=== PATIENT | female | born 1945 | race Two or more races ===

== ENCOUNTER 2020-07-20 06:50 | Day surgery (SDC) | payer OTHER ==
[~2020-07-20] VITALS: Ht 154.9 cm; Wt 32.7 kg
[~2020-07-20 06:50] MED LIST: ARICEPT5 MG PO; LEVOXYL137 MCG PO; PEPCID AC20 MG PO; SYNTHROID137 MCG PO; TRAZODONE HCL50 MG PO
== END 2020-07-20 16:05 | disposition home or self-care (01) ==
LOC: CIR.AMB 06:50
PROVIDERS: ATTEND Colon & Rectal Surgery
DX: C20 Malignant neoplasm of rectum (principal); D12.8 Benign neoplasm of rectum; Z20.828 Contact with and (suspected) exposure to other viral communicable diseases

== ENCOUNTER 2025-08-02 11:45 | Inpatient (IN) | payer OTHER ==
[~2025-08-02] VITALS: Ht 61 cm; Wt 38.1 kg
[2025-08-10] MEDS ORDERED: METRONIDAZOLE/SODIUM CHLORIDE 500 MG/100 ML PIGGYBACK IV ONE (13:14)
[2025-08-10] MEDS ORDERED: CEFTRIAXONE SODIUM 2,000 MG VIAL ONE (13:14)
[2025-08-10] MEDS ORDERED: LIDOCAINE HCL 1%/EPINEPHRINE 20ML VIAL IJ ONE (15:54)
[2025-08-10] MEDS ORDERED: BUPIVACAINE HCL/MPF 0.5% 30ML VIAL ONE (15:54)
[2025-08-10] MEDS ORDERED: SUGAMMADEX SODIUM 200 MG/2 ML VIAL IV ONE (17:34)
[2025-08-10] MEDS ORDERED: DEXTROSE 50 % IN WATER 0.5 G/ML DISP.SYRIN IV PRN (18:15)
[2025-08-10] MEDS ORDERED: OxyCODONE HCL 5 MG TABLET (ROXICODONE) PO PRN (18:15)
[2025-08-10] MEDS ORDERED: MORPHINE SULFATE 4 MG/ML CARTRIDGE IV PRN (18:15)
[2025-08-10] MEDS ORDERED: RINGERS SOLUTION,LACTATED 1,000 ML IV SCH (18:15)
[2025-08-10] MEDS ORDERED: ONDANSETRON HCL 2 MG/ML VIAL IV PRN (18:15)
[2025-08-10 20:00] VITALS: BP 104/58; O2SAT 97
[2025-08-10 20:00] LABS: BUN CREA RATIO 40.0 (7.0-25.0); CREATININE SERUM 0.52 mg/dL (0.55-1.02); GFR 114.04; GLUCOSE FASTING 79.0 mg/dL (65-100); OSMOLALITY SERUM 283.0 MOSM/KG (275-295)
[2025-08-10] MEDS ORDERED: ACETAMINOPHEN 500 MG GEL..CAP PO SCH (20:00)
[2025-08-10] MEDS ORDERED: FAMOTIDINE/PF 20 MG/2 ML VIAL IV PUSH SCH (21:00)
[2025-08-10] MEDS ORDERED: CELECOXIB 200 MG CAPSULE PO SCH (21:00)
[2025-08-10] MEDS ORDERED: GABAPENTIN 300 MG CAPSULE PO SCH (21:00)
[2025-08-10 21:17] LABS: BASO % 0.4 % (0.1-1.2); EOS # 0.04 (0.04-0.54); EOS % 0.5 % (0.7-7.0); LYMPH # 1.49 (1.18-3.74); LYMPH % 18.6 % (19.3-53.1); MEAN PLATELET VOLUME 11.60 fl (9.4-12.4); MONO # 0.70 (0.24-0.82); MONO % 8.7 % (4.7-12.5); NEUT # 5.73 (1.56-6.13); NEUT % 71.6 % (34.0-71.1); RED CELL DISTRIBUTION WIDTH 11.9 % (11.6-14.4)
[2025-08-11 00:52] VITALS: BP 88/57; O2SAT 95
[2025-08-11 01:35] VITALS: BP 93/51
[2025-08-11] MEDS ORDERED: PATIENTS OWN MEDICATION (MEDICAMENTO EN PISO) PO SCH (06:00)
[2025-08-11 06:18] LABS: BASO % 0.3 % (0.1-1.2); EOS # 0.02 (0.04-0.54); EOS % 0.2 % (0.7-7.0); LYMPH # 1.15 (1.18-3.74); LYMPH % 12.4 % (19.3-53.1); MEAN PLATELET VOLUME 12.10 fl (9.4-12.4); MONO # 0.70 (0.24-0.82); MONO % 7.6 % (4.7-12.5); NEUT # 7.32 (1.56-6.13); NEUT % 79.3 % (34.0-71.1); RED CELL DISTRIBUTION WIDTH 12.0 % (11.6-14.4)
[2025-08-11 07:00] LABS: BUN CREA RATIO 35.0 (7.0-25.0); CREATININE SERUM 0.51 mg/dL (0.55-1.02); GFR 116.63; GLUCOSE FASTING 119.0 mg/dL (65-100); OSMOLALITY SERUM 282.0 MOSM/KG (275-295)
[2025-08-11 08:17] VITALS: BP 103/58; O2SAT 97
[2025-08-11] MEDS ORDERED: HYOSCYAMINE SULFATE 0.125 MG TAB.SUBL SL SCH (09:00)
[2025-08-11] MEDS ORDERED: LACTULOSE 20 G/30 ML BLIST.PACK PO SCH (09:00)
[2025-08-11] MEDS ORDERED: CEFTRIAXONE SODIUM 2,000 MG VIAL ONE (14:50)
[2025-08-11] MEDS ORDERED: METRONIDAZOLE/SODIUM CHLORIDE 500 MG/100 ML PIGGYBACK IV ONE (14:51)
[2025-08-11] MEDS ORDERED: ENOXAPARIN SODIUM 40 MG/0.4 ML SYRINGE SUBCUTANEO SCH (17:00)
[2025-08-11] MEDS ORDERED: ONDANSETRON HCL 2 MG/ML VIAL IV PRN (17:15)
[2025-08-11] MEDS ORDERED: MORPHINE SULFATE 4 MG/ML CARTRIDGE IV PRN (17:15)
[2025-08-11] MEDS ORDERED: OxyCODONE HCL 5 MG TABLET (ROXICODONE) PO PRN (17:15)
[2025-08-11] MEDS ORDERED: RINGERS SOLUTION,LACTATED 1,000 ML IV SCH (17:15)
[2025-08-11] MEDS ORDERED: ACETAMINOPHEN 500 MG GEL..CAP PO SCH (20:00)
[2025-08-11 20:40] LABS: BASO % 0.3 % (0.1-1.2); EOS # 0.03 (0.04-0.54); EOS % 0.2 % (0.7-7.0); LYMPH # 1.51 (1.18-3.74); LYMPH % 11.2 % (19.3-53.1); MEAN PLATELET VOLUME 11.50 fl (9.4-12.4); MONO # 0.92 (0.24-0.82); MONO % 6.8 % (4.7-12.5); NEUT # 10.91 (1.56-6.13); NEUT % 81.1 % (34.0-71.1); RED CELL DISTRIBUTION WIDTH 12.0 % (11.6-14.4)
[2025-08-11 20:53] VITALS: BP 114/55; O2SAT 95
[2025-08-11] MEDS ORDERED: FAMOTIDINE/PF 20 MG/2 ML VIAL IV PUSH SCH (21:00)
[2025-08-12 00:15] VITALS: BP 109/53; O2SAT 96
[2025-08-12 00:48] VITALS: BP 114/57
[2025-08-12] MEDS ORDERED: GABAPENTIN 300 MG CAPSULE PO SCH (01:00)
[2025-08-12 05:20] VITALS: BP 108/55
[2025-08-12 06:31] LABS: BASO % 0.2 % (0.1-1.2); EOS # 0.01 (0.04-0.54); EOS % 0.1 % (0.7-7.0); LYMPH # 0.75 (1.18-3.74); LYMPH % 6.8 % (19.3-53.1); MEAN PLATELET VOLUME 12.20 fl (9.4-12.4); MONO # 0.62 (0.24-0.82); MONO % 5.6 % (4.7-12.5); NEUT # 9.55 (1.56-6.13); NEUT % 87.0 % (34.0-71.1); RED CELL DISTRIBUTION WIDTH 11.8 % (11.6-14.4)
[2025-08-12 07:18] LABS: BUN CREA RATIO 17.0 (7.0-25.0); CREATININE SERUM 0.35 mg/dL (0.55-1.02); GFR 180.09; GLUCOSE FASTING 85.0 mg/dL (65-100); OSMOLALITY SERUM 273.0 MOSM/KG (275-295)
[2025-08-12] MEDS ORDERED: LACTULOSE 20 G/30 ML BLIST.PACK PO SCH (09:00)
[2025-08-12] MEDS ORDERED: ENOXAPARIN SODIUM 40 MG/0.4 ML SYRINGE SUBCUTANEO SCH ×2 (09:00→17:00)
[2025-08-12] MEDS ORDERED: HYOSCYAMINE SULFATE 0.125 MG TAB.SUBL SL SCH (09:00)
[2025-08-12] MEDS ORDERED: MAGNESIUM SULFATE IN WATER 50 ML IV NR (10:00)
[2025-08-12 11:08] LABS: URINE APPEARANCE Clear; URINE BILIRRUBIN Negative (NEGATIVE); URINE BLOOD Moderate; URINE COLOR Yellow; URINE GLUCOSE Negative (NEGATIVE); URINE LEUKOCYTE Trace; URINE NITRATE Negative; URINE PROTEIN 30 (NEGATIVE); URINE UROBILINOGEN 0.2 E.U./dl
[2025-08-12 11:13] LABS: URINE BACTERIA 28.7 uL (0.0-1933); URINE EPITHELIAL CELLS 8.1 uL (0.0-38.8); URINE RBC 19.7 uL (0.0-20.8); URINE WBC 17.3 uL (0.0-23.2)
[2025-08-12 11:14] LABS: URINE CAST 0.87 uL (0.0-1.40); URINE KETONE >=160 (NEGATIVE)
[2025-08-12 11:17] VITALS: BP 115/55; O2SAT 98
[2025-08-12] MEDS ORDERED: AMINO ACIDS/PROTEIN HYDROLYS 30 ML BLIST.PACK PO SCH (17:00)
[2025-08-12 17:03] VITALS: BP 104/47; O2SAT 98
[2025-08-13 08:00] VITALS: BP 139/57; O2SAT 94
[2025-08-13] MEDS ORDERED: ENOXAPARIN SODIUM 40 MG/0.4 ML SYRINGE SUBCUTANEO SCH (09:00)
[2025-08-13 10:16] LABS: BASO % 0.3 % (0.1-1.2); EOS # 0.01 (0.04-0.54); EOS % 0.1 % (0.7-7.0); LYMPH # 1.17 (1.18-3.74); LYMPH % 8.6 % (19.3-53.1); MEAN PLATELET VOLUME 12.40 fl (9.4-12.4); MONO # 0.53 (0.24-0.82); MONO % 3.9 % (4.7-12.5); NEUT # 11.75 (1.56-6.13); NEUT % 86.8 % (34.0-71.1); RED CELL DISTRIBUTION WIDTH 12.0 % (11.6-14.4)
[2025-08-13 11:01] LABS: BUN CREA RATIO 11.0 (7.0-25.0); CREATININE SERUM 0.47 mg/dL (0.55-1.02); GFR 128.16; GLUCOSE FASTING 145.0 mg/dL (65-100); OSMOLALITY SERUM 283.0 MOSM/KG (275-295)
[2025-08-13] MEDS ORDERED: POTASSIUM PHOS,M-BASIC-D-BASIC 15 MM in 0.9 % SODIUM CHLORIDE 250 ML IV NR (12:30)
[2025-08-13 16:04] VITALS: BP 121/55; O2SAT 95
[2025-08-13] MEDS ORDERED: POTASSIUM CHLORIDE 20MEQ/100ML H2O PB IV NR (17:00)
[2025-08-14 00:30] VITALS: BP 119/65; O2SAT 96
[2025-08-14 08:13] VITALS: BP 155/67; O2SAT 96
[2025-08-14 08:37] LABS: BASO % 0.2 % (0.1-1.2); EOS # 0.03 (0.04-0.54); EOS % 0.2 % (0.7-7.0); LYMPH # 1.02 (1.18-3.74); LYMPH % 7.8 % (19.3-53.1); MEAN PLATELET VOLUME 12.60 fl (9.4-12.4); MONO # 0.61 (0.24-0.82); MONO % 4.6 % (4.7-12.5); NEUT # 11.39 (1.56-6.13); NEUT % 86.8 % (34.0-71.1); RED CELL DISTRIBUTION WIDTH 12.0 % (11.6-14.4)
[2025-08-14 09:20] LABS: BUN CREA RATIO 21.0 (7.0-25.0); CREATININE SERUM 0.34 mg/dL (0.55-1.02); FREE TRIODOTIRONINE 1.7 pg/ml (2.18-3.98); GFR 186.21; GLUCOSE FASTING 115.0 mg/dL (65-100); OSMOLALITY SERUM 284.0 MOSM/KG (275-295); T4 TOTAL 11.58 UG/DL (4.8-13.9)
[2025-08-14 16:00] VITALS: BP 129/64; O2SAT 95
[2025-08-14] MEDS ORDERED: POTASSIUM PHOS,M-BASIC-D-BASIC 15 MM in 0.9 % SODIUM CHLORIDE 250 ML IV ONE (16:00)
[2025-08-15 00:32] VITALS: BP 139/68; O2SAT 96
[2025-08-15 08:26] VITALS: BP 129/58; O2SAT 98
[2025-08-15] MEDS ORDERED: MORPHINE SULFATE 4 MG/ML VIAL IV PRN (09:45)
[2025-08-15 16:00] VITALS: BP 134/65; O2SAT 96
[2025-08-16 00:37] VITALS: BP 118/66; O2SAT 96
[2025-08-16 06:13] LABS: BASO % 0.8 % (0.1-1.2); EOS # 0.16 (0.04-0.54); EOS % 2.3 % (0.7-7.0); LYMPH # 1.02 (1.18-3.74); LYMPH % 14.4 % (19.3-53.1); MEAN PLATELET VOLUME 11.50 fl (9.4-12.4); MONO # 0.61 (0.24-0.82); MONO % 8.6 % (4.7-12.5); NEUT # 5.23 (1.56-6.13); NEUT % 73.6 % (34.0-71.1); RED CELL DISTRIBUTION WIDTH 12.2 % (11.6-14.4)
[2025-08-16 06:49] LABS: BUN CREA RATIO 18.0 (7.0-25.0); CREATININE SERUM 0.39 mg/dL (0.55-1.02); GFR 158.94; GLUCOSE FASTING 86.0 mg/dL (65-100); OSMOLALITY SERUM 279.0 MOSM/KG (275-295)
[2025-08-16 08:00] VITALS: BP 151/54; O2SAT 97
[2025-08-16] MEDS ORDERED: MAGNESIUM SULFATE IN WATER 50 ML IV NR (11:30)
[2025-08-16] MEDS ORDERED: GABAPENTIN300 MG PO (17:00)
[2025-08-16] MEDS ORDERED: 8 HOUR650 MG PO (17:00)
== END 2025-08-16 21:23 | disposition home or self-care (01) | DRG 330 ==
LOC: O/R 08-10 01:00 → SURG 08-10 01:00 → SURH 08-10 11:45 → SURG 08-10 18:22
PROVIDERS: Internal Medicine Geriatric Medicine; Surgery; ADMIT Colon & Rectal Surgery; ATTEND Colon & Rectal Surgery
PROC: 0DJD0ZZ Inspection of Lower Intestinal Tract, Open Approach (ICD-10-PCS; 2025-08-10)
PROC: 0DTP4ZZ Resection of Rectum, Percutaneous Endoscopic Approach (ICD-10-PCS; 2025-08-11)
PROC: 0DBQ4ZZ Excision of Anus, Percutaneous Endoscopic Approach (ICD-10-PCS; 2025-08-11)
PROC: 07BC4ZZ Excision of Pelvis Lymphatic, Percutaneous Endoscopic Approach (ICD-10-PCS; 2025-08-11)
PROC: 0DTN4ZZ Resection of Sigmoid Colon, Percutaneous Endoscopic Approach (ICD-10-PCS; principal; 2025-08-11 16:15)
DX: C20 Malignant neoplasm of rectum (principal); K92.1 Melena